=== PATIENT | male | born 1960 | race Caucasian/White ===

== ENCOUNTER → 2018-07-06 13:35 | Outpatient (CLI) | payer OTHER, SELFPAY ==
--- NOTE | 2018-07-06 16:34 | P.PCN_ITS ---
Cardiac Stress Test Report Referral & Results Date Patient Seen: 07/06/18 Requesting provider: Delicia Miller Indication: Atrial fibrillation Rest ECG: Unremarkable except for frequent mono focal PVCs including in very brief bigeminal and trigeminal pattern Procedure Note: Today following both written and verbal informed consent, the patient was exercised according to a standard Michael protocol. The patient exercised for a total of 9 min 16 sec achieving a maximum heart rate of 129. Patient's maximum systolic blood pressure was 190. This was an estimated 10.1 MET's. There are no ST-T segment changes Frequent PVCs noted throughout including the active in resting portions of the test Patient failed to meet heart rate target but functional aerobic impairment was-5 % on the active scale or 5% better than average Normal blood pressure response to exercise Impression: No evidence of ischemia. Excellent exercise capacity Dysrhythmia as above No evidence of supraventricular dysrhythmia or atrial fibrillation Clinical correlation suggested Please note: Actual ECG tracings can be found in the PACS system.
== END ==
PROVIDERS: Family Provider Family Medicine Geriatric Medicine; PCP Family Medicine Geriatric Medicine; Visit Provider Family Medicine Geriatric Medicine
DX: I49.3 Ventricular premature depolarization (principal)
CPT/HCPCS: 93016; 93017; 93018

== ENCOUNTER 2018-08-06 12:06 | Day surgery (SDC) | payer OTHER, SELFPAY ==
--- NOTE | 2018-08-06 | PATH_ITS ---
[facility] Accession Number: [id number] . 01 Material submitted: . SIGMOID POLYP BIOPSY AT 20CM . 02 Diagnosis: Biopsy, Sigmoid Colon Polyp at 20 cm: Tubular adenoma involving multiple biopsy fragments. V/08/07/2018 . 02 Electronically signed: . Gui Stark MD, Pathologist NPI- [id number] . 01 Gross description: . Received in one formalin-filled container labeled with the patient's name and labeled sigmoid polyp BX at 20 cm, are multiple 0.2-0.3 cm portions of tissue, entirely submitted in one cassette. ([id number]) /FRR . 02 Pathologist provided ICD-10: D12.5 . 02 CPT . 452938 Performed at: 01 [facility] [address] [address], [place], [place] [id number] MD Emil Salmeron MD Phone: [phone] Performed at: 02 [facility] [address] [place], [place] [id number] MD Elena Torres MD Phone: [phone]
[2018-08-06 13:02] VITALS: BMI 35.2
[2018-08-06] MEDS: SODIUM CHLORIDE 0.9% 1,000 ML 200 ML IV (13:18)
[2018-08-06 13:19] VITALS: BP 130/84; PULSE 64; RESP 16; TEMP 36.5; O2SAT 100
--- NOTE | 2018-08-06 13:38 | PM.HP.1 ---
History of Present Illness Date Patient Seen: 08/06/18 Time Patient Seen: 13:38 Chief complaint: colonoscopy [id number] Narrative: 57-year-old male who presented reason to his primary physician with bright red blood per rectum. He had this once before when he was in his 20s but it spontaneously resolved. Last colonoscopy was 8 years ago which he reports as normal. He has no other gastrointestinal symptoms. No nausea, vomiting, abdominal pain, unintended weight loss, loss of appetite, change in bowel habits, diarrhea, constipation, or melena. Patient is a very poor historian overall and does not recall his medical history to any great extent. Furthermore, there are no records available from his primary care physician or elsewhere within the system. Patient History Surgical History History of colonoscopy (Acute) Family & Social History Family History: Reviewed 08/06/18 by Richy Gomes MD Social History: household members spouse Review of Systems Review of Systems All systems reviewed & are unremarkable except as noted in HPI and below Exam Vital Signs (past 8 hours): - 08/06/18 13:19 Temperature 97.7 F Pulse Rate 64 Respiratory Rate 16 Blood Pressure 130/84 Pulse Oximetry 100 Oxygen Delivery Method Room Air Narrative Exam Narrative: Well-nourished well-developed moderately obese male in no acute distress. Awake alert oriented x3. is at the bedside for my entire visit. Sclera nonicteric Regular rate rhythm Abdomen obese but soft and nondistended. Nontender. Extremities show no clubbing, cyanosis, or edema Objective Labs Labs: No recent laboratory studies are radiographic studies review Assessment & Plan Plan: Assessment/Plan Narrative: 57-year-old male with recent bright red blood per rectum per history. Possibility of colorectal neoplasia. I have recommended colonoscopy. Technical details reviewed. Risks, benefits, and alternatives were explained. Risks including but not limited to sedation, aspiration, bleeding, pain, missed lesion, incomplete examination, need for further radiographic studies, colonic perforation, need for major abdominal surgery, and all attendant risks of major surgery were discussed at length. All questions were answered to his satisfaction, and he voiced understanding. Consent was placed on the chart. We will proceed as above.
--- NOTE | 2018-08-06 13:46 | PM.PREOP ---
Pre-operative Note Interval Note Pre-op Check: Yes History & Physical Reviewed by Physician, Yes Exam Performed and Yes History & Physical exam performed today by Physician Changes: No H&P completed within 30 days and has changed as indicated here:: Patient seen and examined the preoperative area. History and physical examination completed today and placed on the chart. Proceed with colonoscopy today as planned. ASA Class (for procedural sedation): II
[2018-08-06] MEDS: fentaNYL 250 MCG/5 ML INJ IV (14:04)
[2018-08-06] MEDS: MIDAZOLAM 5 MG/5 ML VIAL IV (14:04)
--- NOTE | 2018-08-06 14:10 | PM.OP.ENDO ---
Operative Date/Time/Diagnoses Date of procedure: 08/06/18 Time of procedure: 14:10 Pre-op diagnosis: Bright red blood per rectum Post-op diagnosis: other (Diverticulosis and sigmoid polyp) Procedure & Clinicians Study performed: 1. Sedation per surgeon 2. Colonoscopy with cold forceps polypectomy Same procedure as scheduled: Yes Indications: 57-year-old male who presented with bright red blood per rectum. It has been 8 years since his last colonoscopy. Colonoscopy is once again recommended to assess for possible colitis or colorectal neoplasia. Surgeon: Richy Gomes Procedure Notes SCOAP/Timeout: Yes Procedure in detail: After obtaining informed consent, the patient was brought to the GI suite and placed in the left lateral decubitus position on the examination table. After placement of appropriate monitors, the patient was given incremental doses of Versed and Fentanyl until an appropriate level of sedation was achieved. A time out was held per SCOAP protocol. A digital rectal examination was performed and did not reveal any masses or obstructing lesions. The colonoscope was gently passed into the patient's anus and the entire colon navigated to the level of the cecum with minimal difficulty. Once in the cecum, the scope was withdrawn being sure to go before and beyond all mucosal folds and prominences and get an excellent examination. The findings are noted above. At the level of the rectal vault, the scope was retroflexed and the internal anal canal was examined. The scope was straightened and air aspirated from the colon. The instrument was removed from the patient's body and the procedure was concluded. The patient was allowed to awaken from sedation without difficulty and taken to the post-anesthesia care unit in good condition. Scope withdrawal time: 9:27 min Sedation minutes: 16 Findings: diverticulosis, internal hemorrhoids (Grade 2) and polyp Specimen(s): other (Sigmoid colon polyp at 20 cm) Complications: none Recommendations: Colonscopy in 5 years, High fiber diet and Will call with biopsy results Plan for aftercare: 1. Discharge home Follow up: as needed Disposition: PACU
[2018-08-06 14:15] VITALS: BP 119/82; PULSE 52; RESP 12; TEMP 36.6; O2SAT 99
[2018-08-06 14:20] VITALS: BP 123/75; PULSE 50; RESP 15; O2SAT 100
[2018-08-06 14:25] VITALS: BP 127/83; PULSE 59; RESP 21; TEMP 36.3; O2SAT 98
[2018-08-06 14:35] VITALS: BP 120/79; PULSE 60; RESP 16; TEMP 36.7; O2SAT 100
[2018-08-06 15:00] VITALS: BP 132/77; PULSE 55; RESP 16; TEMP 36.7; O2SAT 99
== END 2018-08-06 15:15 | disposition home or self-care (01) ==
PROVIDERS: PCP Family Medicine Geriatric Medicine; Visit Provider Surgery
PROC: 0DJD8ZZ Inspection of Lower Intestinal Tract, Via Natural or Artificial Opening Endoscopic (ICD-10-PCS; CPT 45378; principal; 2018-08-06 13:45)
DX: K57.30 Diverticulosis of large intestine without perforation or abscess without bleeding (principal); K64.1 Second degree hemorrhoids; D12.5 Benign neoplasm of sigmoid colon
CPT/HCPCS: 45380; 99152; J2250; J3010

== ENCOUNTER → 2018-12-14 15:27 | Outpatient (CLI) | payer OTHER, SELFPAY ==
--- NOTE | 2018-12-14 | DI.MRI.S_ITS ---
PROCEDURE: MR HAND RT WO/W CON INDICATIONS: PSORIATIC ARTHRITIS TECHNIQUE: Coronal and axial T1 spin echo and T2 fast spin echo with fat saturation. Post-contrast coronal and axial T1 spin echo with fat saturation images through the right hand and wrist. COMPARISON: [facility], CR, XR HAND 3+ VIEWS BILATERAL, 07/27/2018, 10:15. FINDINGS: Image quality: Excellent. Bones and cartilage: Carpal bones and phalanges are normally aligned. No marrow edema. No fracture or dislocation. There is no abnormal intraosseous enhancement. No bony erosion or cortical destruction. Joint spaces are well-preserved. No suspicious intraosseous lesion. Synovium: Small amount of fluid within the second and fifth MTP joints are seen with enhancement of synovial lining suspicious for early synovitis. No other area of abnormal synovial enhancement and thickening is seen. Soft tissues: Extensor and flexor tendons of the hand are grossly intact. No gross ligamentous abnormality is seen in left hand. IMPRESSION: 1. Fluid distending second and fifth MCP joint capsules with abnormal enhancement of synovial lining, concerning for synovitis secondary to inflammatory arthropathy. No other area of abnormal contrast enhancement seen. 2. No marrow edema. No gross bony erosion. Joint spaces are fairly well-preserved. Dictated by: En Huber M.D. on 12/15/2018 at 15:21 Approved by: En Huber M.D. on 12/15/2018 at 15:33
== END ==
PROVIDERS: PCP Family Medicine Geriatric Medicine; Visit Provider Specialist/Technologist Athletic Trainer
DX: L40.50 Arthropathic psoriasis, unspecified (principal)
CPT/HCPCS: 73220; A9579

== ENCOUNTER → 2018-12-23 14:25 | Outpatient (CLI) | payer OTHER, SELFPAY ==
--- NOTE | 2018-12-23 | DI.MRI.S_ITS ---
PROCEDURE: MR HAND LT WO/W CON INDICATIONS: Arthropathic psoriasis, unspecified LEFT HAND TECHNIQUE: Coronal and axial T1 spin echo and T2 fast spin echo with fat saturation. Post-contrast coronal and axial T1 spin echo with fat saturation images through the left hand and wrist. COMPARISON: [facility], CR, XR HAND 3+ VIEWS BILATERAL, 07/27/2018, 10:15. FINDINGS: Image quality: Excellent. Bones and cartilage: First CMC and triscaphe joint degeneration. No definite marrow signal changes to suggest erosions identified. Synovium: Prominent synovial enhancement seen at the second and third MCP joints. Soft tissues: No pathologic joint effusion. No evidence of tenosynovitis. IMPRESSION: Prominent synovitis involving the second and third MCP joints although no discrete erosions identified at this time. Dictated by: Hilton Contreras M.D. on 12/23/2018 at 16:50 Approved by: Hilton Contreras M.D. on 12/23/2018 at 16:56
== END ==
PROVIDERS: PCP Family Medicine Geriatric Medicine; Visit Provider Specialist/Technologist Athletic Trainer
DX: L40.50 Arthropathic psoriasis, unspecified (principal); M65.842 Other synovitis and tenosynovitis, left hand; M18.12 Unilateral primary osteoarthritis of first carpometacarpal joint, left hand
CPT/HCPCS: 73220; A9579